=== PATIENT | male | born 1950 | race Caucasian/White ===

== ENCOUNTER 2019-11-16 07:21 | Inpatient (IN) | payer OTHER ==
[2019-11-16 07:30] VITALS: BMI 26.7
[2019-11-16] MEDS ORDERED: morphine CARPU-JECT 4 MG/1 ML DISP.SYRIN IVPUSH ONE (07:50)
[2019-11-16] MEDS ORDERED: LACTATED RINGERS SOLUTION 1000 ML INFUS.BAG IV ONE ×4 (07:51→17:38)
[2019-11-16] MEDS ORDERED: morphine SULFATE 4 MG/ML VIAL ONE (08:08)
[2019-11-16] MEDS ORDERED: LORazepam 2 MG/ML SDV VIAL ONE ×2 (08:46→10:27)
[2019-11-16] MEDS ORDERED: PIPERACILLIN/TAZOB 4.5 GM 4.5 GM in DEXTROSE 5%-WATER 100 ML IVPB ONE (08:50)
[2019-11-16] MEDS ORDERED: VANCOMYCIN HCL 1,500 MG in DEXTROSE 5%-WATER - 500 ML IVPB ONE (08:51)
[2019-11-16 08:59] LABS: HEMATOCRIT 48.7 % (35.4-49); HEMOGLOBIN 16.2 GM/dL (11.7-16.9); RBC 5.09 M/mm3 (4.00-5.60); WHITE BLOOD COUNT 16.3 K/mm3 (4.0-10.0)
[2019-11-16 09:00] LABS: BASO % 0.1 % (0-2.0); EOS % 0.4 % (0-4.5); LYMPH % 21.3 % (8-40); MCH 31.9 pg (25.7-33.7); MCHC 33.3 g/dl (32.0-35.9); MEAN CELL VOLUME 95.6 fl (80-96); MEAN PLT VOLUME 9.3 fl (7.5-11.1); NEUT % 72.2 % (42.8-82.8); PLATELET COUNT 238 K/MM3 (134-434)
[2019-11-16 09:06] LABS: INR 0.97 (0.83-1.09); PROTHROMBIN TIME (PATIENT) 11.5 SEC (9.7-13.0)
[2019-11-16 09:08] LABS: ACTIVATED PTT 29.6 SECONDS (25.2-36.5)
[2019-11-16] MEDS ORDERED: diazePAM CARPU-JECT 10 MG/2 ML DISP.SYRIN ONE ×3 (09:14→12:04)
[2019-11-16 09:23] LABS: ALBUMIN 4.5 g/dl (3.4-5.0); ALK PHOS 322 U/L (45-117); ANION GAP 16 MMOL/L (8-16); BLOOD UREA NITROGEN 19.1 mg/dL (7-18); CALCIUM 9.6 mg/dL (8.5-10.1); CHLORIDE 103 mmol/L (98-107); CO2 18 mmol/L (21-32); CREATININE 1.4 mg/dL (0.55-1.3); GLUCOSE,RANDOM 163 mg/dL (74-106); POTASSIUM 3.7 mmol/L (3.5-5.1); SGOT/AST 278 U/L (15-37); SGPT/ALT 260 U/L (13-61); SODIUM 137 mmol/L (136-145); TOT PROT 8.9 g/dl (6.4-8.2)
[2019-11-16 09:31] LABS: LIPASE > 30000 U/L (73-393)
[2019-11-16] MEDS ORDERED: diazePAM CARPU-JECT 10 MG/2 ML DISP.SYRIN IVPUSH ONE ×4 (09:37→12:02)
[2019-11-16 11:03] LABS: VENOUS BASE EXCESS -8.7 mmol/L (-2-2); VENOUS O2 SATURATION 70.8 % (70-80); VENOUS PCO2 30.8 mmHg (38-52); VENOUS PH 7.334 (7.310-7.410)
[2019-11-16] MEDS ORDERED: CEFTRIAXONE 2,000 MG in DEXTROSE 5%-WATER - 50 ML IVPB ONE (12:14)
[2019-11-16 12:57] LABS: URINE APPEARANCE CLEAR; URINE COLOR YELLOW
[2019-11-16 12:58] LABS: URINE BILIRUBIN NEGATIVE (NEGATIVE); URINE GLUCOSE (UA) 500 mg/dl (NEGATIVE); URINE KETONE 15 mg/dl (NEGATIVE); URINE NITRITE NEGATIVE (NEGATIVE); URINE PROTEIN 30 (NEGATIVE); URINE UROBILINOGEN 0.2 mg/dL (0.2-1.0)
[2019-11-16 12:59] LABS: EPI CELLS 2.1 /uL (0-25.1); HYALINE CASTS 0.51 /uL (0-3.1); URINE BACTERIA 10.5 /uL (0-1359); URINE LEUK ESTERASE NEGATIVE (NEGATIVE); URINE RBC 2.9 /uL (0-23.9); URINE WBC 1.5 /uL (0-25.8)
[2019-11-16 13:10] LABS: COCAINE, UR NEGATIVE ng/ml (CUTOFF=300); METHADONE, UR NEGATIVE ng/ml (CUTOFF=300); PHENCYCLIDINE,URINE NEGATIVE ng/ml (CUTOFF=25); URINE BARBITURATES NEGATIVE ng/ml (CUTOFF=200)
[2019-11-16] MEDS ORDERED: CEFTRIAXONE 2 GM/100 ML BAG IVPB ONE (13:10)
[2019-11-16 13:13] LABS: URINE AMPHETAMINES NEGATIVE ng/ml (CUTOFF=500)
[2019-11-16 13:14] LABS: OPIATES, URI POSITIVE ng/ml (CUTOFF=300); URINE BENZODIAZEPINES POSITIVE ng/ml (CUTOFF=200)
[2019-11-16 13:20] LABS: TRIGLYCERIDES 208 mg/dL (0-150)
[2019-11-16 13:25] LABS: LDH 193 U/L (87-246)
[2019-11-16] MEDS ORDERED: MIDAZOLAM HCL 2 MG/2 ML SINGLE DOSE VIAL ONE (13:29)
[2019-11-16] MEDS ORDERED: MIDAZOLAM HCL 2 MG/2 ML SINGLE DOSE VIAL IVPUSH ONE (14:20)
[2019-11-16] MEDS ORDERED: PIPERACILLIN/TAZOB 4.5 GM 4.5 GM/100 ML BAG IVPB ONE (14:26)
[2019-11-16 14:59] LABS: BF GLUCOSE (CSF ONLY) 84 mg/dL (40-70)
[2019-11-16 15:16] LABS: CSF APPEARANCE CLEAR; CSF COLOR COLORLESS
[2019-11-16 15:17] LABS: CSF WBC 1
[2019-11-16 15:19] LABS: CSF APPEARANCE CLEAR; CSF COLOR COLORLESS
[2019-11-16 15:21] LABS: CSF WBC 0
[2019-11-16] MEDS ORDERED: PANTOPRAZOLE SODIUM 40 MG in SODIUM CHLORIDE 100 ML IVPB ONE (15:50)
[2019-11-16] MEDS ORDERED: PANTOPRAZOLE SODIUM 40 MG VIAL ONE (15:53)
[2019-11-16] MEDS ORDERED: SODIUM CHLORIDE 0.9% 1000 ML INFUS.BAG IV ONE (16:17)
[2019-11-16] MEDS ORDERED: diazePAM CARPU-JECT 10 MG/2 ML DISP.SYRIN IVPUSH PRN (16:37)
[2019-11-16] MEDS ORDERED: VANCOMYCIN 1,000 MG in DEXTROSE 5%-WATER - 250 ML IVPB SCH (16:45)
[2019-11-16] MEDS ORDERED: SODIUM CHLORIDE 1,000 ML IV SCH (16:45)
[2019-11-16 17:13] VITALS: BP 172/93; PULSE 81; TEMP 99
[2019-11-16 17:24] LABS: HEMATOCRIT 50.3 % (35.4-49); HEMOGLOBIN 16.5 GM/dL (11.7-16.9); LYMPH % 5.3 % (8-40); MCH 31.8 pg (25.7-33.7); MCHC 32.7 g/dl (32.0-35.9); MEAN CELL VOLUME 97.1 fl (80-96); MEAN PLT VOLUME 9.1 fl (7.5-11.1); MONO % 4.3 % (3.8-10.2); NEUT % 90.4 % (42.8-82.8); PLATELET COUNT 178 K/MM3 (134-434); RBC 5.18 M/mm3 (4.00-5.60); RDW 14.3 % (11.9-15.9); WHITE BLOOD COUNT 14.6 K/mm3 (4.0-10.0)
[2019-11-16] MEDS ORDERED: MEROPENEM 1 GM in DEXTROSE 5%-WATER 100 ML IVPB SCH (18:00)
[2019-11-16 18:25] LABS: ALBUMIN 3.5 g/dl (3.4-5.0); BILIRUBIN,DIRECT 1.8 mg/dL (0.0-0.2); BILIRUBIN,TOTAL 2.6 mg/dL (0.2-1); BLOOD UREA NITROGEN 14.9 mg/dL (7-18); CALCIUM 8.4 mg/dL (8.5-10.1); CREATININE 1.3 mg/dL (0.55-1.3); POTASSIUM 3.9 mmol/L (3.5-5.1); TOT PROT 7.2 g/dl (6.4-8.2)
[2019-11-16] MEDS ORDERED: HEPARIN NA (PORCINE) 5,000 UNITS/ML 1ML VIAL SQ SCH (22:00)
[2019-11-16] MEDS ORDERED: PANTOPRAZOLE SODIUM 40 MG in SODIUM CHLORIDE 100 ML IVPB SCH (22:00)
[2019-11-16] MEDS ORDERED: VANCOMYCIN 1 GRAM (PRE-DOCKED) 1,000 MG/250 ML BAG IVPB SCH (22:00)
== END 2019-11-16 17:59 | disposition short-term general hospital (02) | DRG 720 ==
LOC: JER 07:21 → JERBED 09:38
PROVIDERS: ADMIT Internal Medicine; ATTEND Internal Medicine
PROC: 009U3ZX Drainage of Spinal Canal, Percutaneous Approach, Diagnostic (ICD-10-PCS; principal; 2019-11-16)
DX: A41.9 Sepsis, unspecified organism (principal); K83.09 Other cholangitis; G93.40 Encephalopathy, unspecified; N17.9 Acute kidney failure, unspecified; K85.10 Biliary acute pancreatitis without necrosis or infection; E87.2 Acidosis; R74.0 Nonspecific elevation of levels of transaminase and lactic acid dehydrogenase [LDH]; R94.5 Abnormal results of liver function studies; K83.9 Disease of biliary tract, unspecified
CPT/HCPCS: 36415; 70450-TC; 71045-TC-FY; 74177-TC; 76705-TC; 80053; 80074; 80307; 81003; 82140; 82248; 82550; 82803; 82945; 83605; 83615; 83690; 84157; 84478; 84484; 85025; 85610; 85730; 86592; 86694; 86735; 86765; 86780; 86787; 86788; 86789; 86850; 86900; 86901; 87040; 87070; 87205; 87529; 93005; 93010; 99285-25; Q9967; U0003